=== PATIENT | female | born 1995 | race American Indian/Alaskan Native ===

== ENCOUNTER 2021-02-12 03:37 | Inpatient (IN) | payer MEDICAID ==
[2021-02-12] MEDS ORDERED: fentaNYL 100 MCG/2 ML INJ ONE (04:04)
[2021-02-12] MEDS ORDERED: ePHEDrine SULFATE 50 MG/1 ML INJ IV PRN (04:20)
[2021-02-12] MEDS ORDERED: MINERAL OIL 30 ML ORAL LIQD PO PRN (04:20)
[2021-02-12] MEDS ORDERED: METHYLERGONOVINE MALEATE 0.2 MG/ML VIAL IM PRN (04:20)
[2021-02-12] MEDS ORDERED: ACETAMINOPHEN 325 MG TAB PO PRN (04:20)
[2021-02-12] MEDS ORDERED: ONDANSETRON 4 MG/2 ML INJ IV PRN ×2 (04:20→09:30)
[2021-02-12] MEDS ORDERED: miSOPROStol 200 MCG TAB PR PRN (04:20)
[2021-02-12] MEDS ORDERED: fentaNYL 100 MCG/2 ML INJ IV PRN (04:20)
[2021-02-12] MEDS ORDERED: LOPERAMIDE 2 MG CAP PO PRN (04:20)
[2021-02-12] MEDS ORDERED: BUTORPHANOL 2 MG/1 ML INJ IV PRN (04:20)
[2021-02-12] MEDS ORDERED: TERBUTALINE 1 MG/1 ML INJ SUB-Q PRN (04:20)
[2021-02-12] MEDS ORDERED: OXYTOCIN 10 UNIT/1 ML INJ IM PRN (04:20)
[2021-02-12] MEDS ORDERED: NALOXONE 0.4 MG/1 ML INJ IV PRN (04:20)
[2021-02-12] MEDS ORDERED: CARBOPROST TROMETHAMINE 250 MCG/1 ML INJ IM PRN (04:20)
[2021-02-12] MEDS ORDERED: LIDOCAINE (2%) 20 MG/1 ML VIAL 20 ML MDV INFILTRATI ONE (04:20)
--- NOTE | 2021-02-12 04:28 | History and Physical Report ---
History of Present Illness Date of examination: 02/12/21 Date of admission: 02/12/21 03:43 Chief complaint: contractions History of present illness: Pt is a 25 year old -[place] female ADIS 02/19/21 at 39w0d who presents with painful contractions since yesterday and complete dilation with a bulging bag. She has had care at [facility] since 5 wks complicated by morbid obesity, THC use, previous x 1, genital herpes without lesion or prodrome, and anemia on iron supplementation. She is GBS Negative. 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 Social history: no significant social history - Obstetrical History Expected Date of Delivery: 02/19/21 Actual Gestation: 39 Week(s) 0 Day(s) : 5 Para: 2 Hx # Term Pregnancies: 2 Number of Pregnancies: 0 Spontaneous Abortions: 2 Induced : 0 Number of Living Children: 2 Medications and Allergies Allergies Allergy/AdvReac Type Severity Reaction Status Date / Time coconut oil Allergy Unknown Verified 08/20/14 22:35 Home Medications Medication Instructions Recorded Confirmed Last Taken Type Famotidine [Pepcid] 20 mg PO BID PRN #30 tablet 08/20/14 Unknown Rx diphenhydrAMINE [Benadryl] 25 mg PO Q6HR PRN #30 capsule 08/20/14 Unknown Rx Review of Systems All systems: negative - Vital Signs Vital signs: Vital Signs Pulse BP 81 108/55 02/12/21 04:08 02/12/21 04:08 Temp Pulse Resp BP Pulse Ox 77 108/55 94 02/12/21 04:20 02/12/21 04:08 02/12/21 04:20 - Physical Exam Breasts: Positive: deferred Abdomen: Positive: soft (obese, gravid ) Uterus: Positive: enlarged (gravid ) Extremities: Positive: normal - Obstetrical FHR: auscultation normal Uterine Contraction Monitor Mode: External Uterine Tone Measurement Phase: Resting Results All other labs normal. Assessment and Plan A: IUP at 39w0d Previous x 1 Transitional Labor Morbid Obesity Genital Herpes without lesion or prodrome Anemia GBS Negative P: Admit to labor and delivery Routine intrapartum care
[2021-02-12] MEDS ORDERED: LACTATED RINGERS 1,000 ML IV SCH (04:30)
--- NOTE | 2021-02-12 04:32 | Procedure Note ---
OB Delivery Note - Delivery Date of Delivery: 02/12/21 Surgeon: GILBERT TALBOT Estimated blood loss: 500cc - Vaginal Delivery presentation: vertex Delivery position: OA Intrapartum events: meconium Delivery induction: none Delivery monitor: external FHT, external uterine Route of delivery: Delivery placenta: spontaneous Episiotomy: none Delivery laceration: none Anesthesia: none Delivery comments: While provider on-call en route, patient delivered a viable female via spontaneous vaginal delivery over intact perineum. Terminal meconium. bulb suctioned. Cord clamped and cut and handed in NICU staff in attendance. Upon entry into room, on warmer with NICU staff and placenta in situ. Placenta delivered spontaneously. Vagina and perineum explored. No lacerations noted. EBL 500 mL. - A at 1 minute: 8 at 5 minutes: 9 Gender: Female (3630g (8lb 0oz) @ 0354 am)
[2021-02-12] MEDS ORDERED: OXYTOCIN DRIP 30 UNITS/500 ML BAG IV SCH ×2 (05:00)
[2021-02-12 05:22] LABS: Hematocrit 36.4 % (30.3-42.9); Hemoglobin 12.5 gm/dl (10.1-14.3); Mean Corpuscular HGB Conc 34 % (30-34); Mean Corpuscular Volume 100 fl (79-97); Platelet Count 162 K/mm3 (140-440); Red Blood Count 3.66 M/mm3 (3.65-5.03); Red Cell Distribution Width 14.1 % (13.2-15.2)
[2021-02-12] MEDS ORDERED: LANOLIN/ZINC/DIMETHICONE (LANSINOH) 7 GM TP PRN ×2 (08:40→10:00)
[2021-02-12] MEDS ORDERED: BENZOCAINE/MENTHOL 20/0.5% TOP SPRAY 56 GM TP PRN (09:00)
[2021-02-12] MEDS ORDERED: PROMETHAZINE 25 MG RECT SUPP PR PRN (10:00)
[2021-02-12] MEDS ORDERED: diphenhydrAMINE 25 MG CAP PO PRN (10:00)
[2021-02-12] MEDS ORDERED: WITCH HAZEL/ GLYCERIN PAD TP PRN (10:00)
[2021-02-12] MEDS ORDERED: PROMETHAZINE 25 MG TAB PO PRN (10:00)
[2021-02-12] MEDS ORDERED: HYDROcodone/ACETAMINOPHEN 5-325 MG TAB PO PRN (10:00)
[2021-02-12] MEDS: IBUPROFEN 600 MG TAB PO SCH ×3 (12:22→22:41)
[2021-02-12 18:04] LABS: Hematocrit 33.3 % (30.3-42.9); Hemoglobin 11.2 gm/dl (10.1-14.3)
[2021-02-12] MEDS ORDERED: MAGNESIUM HYDROXIDE (MOM) ORAL LIQD UDC PO PRN (22:00)
[2021-02-13] MEDS ORDERED: TETANUS,DIPH,PERTUSS(ACELL) VACCINE 0.5 ML SYRINGE IM ONE ×2 (04:36→10:00)
[2021-02-13] MEDS: IBUPROFEN 600 MG TAB PO SCH (06:06)
[2021-02-13] MEDS ORDERED: MEASLES, MUMPS & RUBELLA 12,500 UNIT/0.5 ML VACCINE SUB-Q ONE (08:00)
--- NOTE | 2021-02-13 08:47 | Discharge Summary ---
Providers - Providers Date of Admission: 02/12/21 03:43 Date of discharge: 02/14/21 Attending physician: GILBERT TALBOT 02/12/21 08:40 Consult to [facility] [CONS] Routine Reason For Exam: assistance with , SNS Primary care physician: GILBERT TALBOT Hospitalization Reason for admission: active labor Delivery: Episiotomy: none Laceration: none Other procedures: none complications: none Discharge diagnosis: IUP at term delivered [place] baby: female Hospital course: Pt is a 25 year old -[place] female ADIS 02/19/21 at 39w0d who presents with painful contractions since yesterday and complete dilation with a bulging bag. She has had care at [facility] since 5 wks complicated by morbid obesity, THC use, previous x 1, genital herpes without lesion or prodrome, and anemia on iron supplementation. She is GBS Negative. While provider on-call en route, patient delivered a viable female via spontaneous vaginal delivery over intact perineum. Terminal meconium. bulb suctioned. Cord clamped and cut and handed in NICU staff in attendance. Upon entry into room, on warmer with NICU staff and placenta in situ. Placenta delivered spontaneously. Vagina and perineum explored. No lacerations noted. EBL 500 mL. Condition at discharge: Good Disposition: DC-01 TO HOME OR SELFCARE - Discharge Diagnoses (1) Vaginal after () Status: Acute Plan - Discharge Medications Prescriptions: Ibuprofen [Motrin 600 MG tab] 600 mg PO Q8H 7 Days #21 tablet - Provider Discharge Summary Activity: routine, no sex for 6 weeks, no heavy lifting 4 weeks, no strenuous exercise Diet: other Instructions: routine Additional instructions: [] Smoking cessation referral if applicable(refer to patient education folder for contact #) [] Refer to [facility] Booklet Call your doctor immediately for: * Fever > 100.5 * Heavy vaginal bleeding ( >1 pad per hour) * Severe persistent headache * Shortness of breath * Reddened, hot, painful area to leg or breast - Follow up plan Follow up: GILBERT TALBOT MD [Primary Care Provider] - 6 Weeks
[2021-02-13 14:29] VITALS: BP 111/67
== END 2021-02-13 16:30 | disposition home or self-care (01) | DRG 774 ==
LOC: TRG 03:37 → APU 03:39 → TRG 03:42 → LD 03:43 → OB 07:47
PROVIDERS: ADMIT Obstetrics & Gynecology; ATTEND Obstetrics & Gynecology
PROC: 10E0XZZ Delivery of Products of Conception, External Approach (ICD-10-PCS; principal; 2021-02-12)
PROC: 3E0234Z Introduction of Serum, Toxoid and Vaccine into Muscle, Percutaneous Approach (ICD-10-PCS; 2021-02-13)
DX: O77.0 Labor and delivery complicated by meconium in amniotic fluid (principal); O98.32 Other infections with a predominantly sexual mode of transmission complicating childbirth; O34.219 Maternal care for unspecified type scar from previous cesarean delivery; O99.214 Obesity complicating childbirth; Z37.0 Single live birth; Z3A.39 39 weeks gestation of pregnancy; D64.9 Anemia, unspecified; E66.01 Morbid (severe) obesity due to excess calories; O99.02 Anemia complicating childbirth; A60.00 Herpesviral infection of urogenital system, unspecified; Z20.822 Contact with and (suspected) exposure to COVID-19; Z23 Encounter for immunization
CPT/HCPCS: 36415; 85014; 85018; 85027; 86592; 86850; 86900; 86901; 88307; 99211; G0378; G0463; J3010; U0003